=== PATIENT | female | born 1980 ===

== ENCOUNTER → 2020-07-12 | Outpatient (CLI) | payer OTHER ==
--- NOTE | 2020-07-12 14:23 | MM ---
Reason for exam: screening (asymptomatic). Baseline mammogram. History: Family history of breast cancer in maternal aunt at age 28. Taking hormonal contraceptives beginning at age 18. Physical Findings: Nurse did not find any significant physical abnormalities on exam. MG 3D Screening Mammo W/Cad Bilateral CC, MLO, and XCCL view(s) were taken. The breast tissue is heterogeneously dense. This may lower the sensitivity of mammography. There is no discrete abnormality. Benign right axillary lymph nodes. These results were verbally communicated with the patient and result sheet given to the patient on 07/12/20. ASSESSMENT: Benign, BI-RAD 2 RECOMMENDATION: Routine screening mammogram of both breasts in 1 year.
== END | disposition home or self-care (01) ==
LOC: RADMAMWWP 12:50
PROVIDERS: ATTEND Family Medicine
DX: Z12.31 Encounter for screening mammogram for malignant neoplasm of breast (principal)
CPT/HCPCS: 77063; 77067

== ENCOUNTER 2021-05-25 00:20 | Emergency (ER) | payer OTHER ==
[2021-05-25] MEDS ORDERED: ONDANSETRON 4 MG/2 ML VIAL IVP STA (01:16)
[2021-05-25] MEDS ORDERED: SODIUM CHLORIDE 0.9% 1,000 ML IV STA (01:16)
[2021-05-25] MEDS ORDERED: PANTOPRAZOLE 40 MG/10 ML VIAL IVP STA (01:17)
--- NOTE | 2021-05-25 01:17 | ED ---
Abdominal Pain HPI - General Chief Complaint: Recheck/Abnormal Lab/Rx Stated Complaint: Abd Pain Time Seen by Provider: 05/25/21 00:37 Source: patient, RN notes reviewed, old records reviewed Mode of arrival: ambulatory Limitations: no limitations - History of Present Illness Initial Comments: This is a 40-year-old female to the ER for evaluation. Patient presents today for evaluation regards to not feeling well with nausea and abdominal pain. Patient has history of needing a lot of wild mushrooms. Patient did for. While motions again tonight and after dinner the symptoms began. No fevers's some nausea without vomiting. No diarrhea. No prior history of similar complaints MD Complaint: abdominal pain -: days(s) Location: diffuse, epigastric, suprapubic Radiation: epigastric, suprapubic Migration to: epigastric, suprapubic Severity: mild Severity scale (1-10): 3 Quality: stabbing, aching Improves With: nothing Worsens With: nothing Associated Symptoms: nausea, vomiting Treatments Prior to Arrival: other (none) - Related Data Allergies Allergy/AdvReac Type Severity Reaction Status Date / Time No Known Allergies Allergy Verified 05/25/21 00:35 Review of Systems ROS Statement: Those systems with pertinent positive or pertinent negative responses have been documented in the HPI. ROS Other: All systems not noted in ROS Statement are negative. Past Medical History Past Medical History: No Reported History History of Any Multi-Drug Resistant Organisms: None Reported Past Surgical History: Section, Orthopedic Surgery Past Psychological History: No Psychological Hx Reported Smoking Status: Never smoker Past Alcohol Use History: Occasional Past Drug Use History: None Reported General Exam Limitations: no limitations General appearance: alert, in no apparent distress, anxious Head exam: Present: atraumatic, normocephalic, normal inspection Eye exam: Present: normal appearance, PERRL, EOMI. Absent: scleral icterus, conjunctival injection, periorbital swelling ENT exam: Present: normal exam, mucous membranes moist Neck exam: Present: normal inspection. Absent: tenderness, meningismus, lymphadenopathy Respiratory exam: Present: normal lung sounds bilaterally. Absent: respiratory distress, wheezes, rales, rhonchi, stridor Cardiovascular Exam: Present: regular rate, normal rhythm, normal heart sounds. Absent: systolic murmur, diastolic murmur, rubs, gallop, clicks GI/Abdominal exam: Present: soft, normal bowel sounds. Absent: distended, tenderness, guarding, rebound, rigid Extremities exam: Present: normal inspection, full ROM, normal capillary refill. Absent: tenderness, pedal edema, joint swelling, calf tenderness Back exam: Present: normal inspection Neurological exam: Present: alert, oriented X3, CN II-XII intact Psychiatric exam: Present: normal affect, normal mood Skin exam: Present: warm, dry, intact, normal color. Absent: rash Course Vital Signs 05/25/21 05/25/21 05/25/21 00:30 01:53 03:00 Temperature 98.6 F 98.1 F Pulse Rate 108 H 79 83 Respiratory 20 16 16 Rate Blood Pressure 122/80 118/74 121/78 O2 Sat by Pulse 99 99 99 Oximetry 05/25/21 04:02 Temperature 98.3 F Pulse Rate 76 Respiratory 16 Rate Blood Pressure 119/79 O2 Sat by Pulse 99 Oximetry - Reevaluation(s) Reevaluation #1: Medical record is reviewed Patient symptoms are significantly improved Patient family informed results questions answered Medical Decision Making - Medical Decision Making 40 female to the emergency department for evaluation of abdominal pain with nausea concern for amount of consumption overall mushrooms. His lab values are normal here in the ER she feels improved and can be discharged home - Lab Data Result diagrams: 05/25/21 01:34 05/25/21 01:34 Lab Results 05/25/21 05/25/21 05/25/21 Range/Units 01:34 01:34 01:34 WBC 12.4 H (3.8-10.6) k/uL RBC 4.79 (3.80-5.40) m/uL Hgb 15.0 (11.4-16.0) gm/dL Hct 44.8 (34.0-46.0) % MCV 93.4 (80.0-100.0) fL MCH 31.3 (25.0-35.0) pg MCHC 33.5 (31.0-37.0) g/dL RDW 12.9 (11.5-15.5) % Plt Count 321 (150-450) k/uL MPV 8.8 Neutrophils % 75 % Lymphocytes % 18 % Monocytes % 4 % Eosinophils % 1 % Basophils % 0 % Neutrophils # 9.3 H (1.3-7.7) k/uL Lymphocytes # 2.2 (1.0-4.8) k/uL Monocytes # 0.5 (0-1.0) k/uL Eosinophils # 0.2 (0-0.7) k/uL Basophils # 0.1 (0-0.2) k/uL PT 10.2 (9.0-12.0) sec INR 0.9 (<1.2) APTT 22.7 (22.0-30.0) sec Sodium 137 (137-145) mmol/L Potassium 4.0 (3.5-5.1) mmol/L Chloride 108 H (98-107) mmol/L Carbon Dioxide 22 (22-30) mmol/L Anion Gap 7 mmol/L BUN 12 (7-17) mg/dL Creatinine 0.57 (0.52-1.04) mg/dL Est GFR (CKD-EPI)AfAm >90 (>60 ml/min/1.73 sqM) Est GFR (CKD-EPI)NonAf >90 (>60 ml/min/1.73 sqM) Glucose 98 (74-99) mg/dL Plasma Lactic Acid [place] (0.7-2.0) mmol/L Calcium 9.0 (8.4-10.2) mg/dL Phosphorus 3.2 (2.5-4.5) mg/dL Magnesium 2.3 (1.6-2.3) mg/dL Total Bilirubin 0.8 (0.2-1.3) mg/dL AST 20 (14-36) U/L ALT 16 (4-34) U/L Alkaline Phosphatase 53 (38-126) U/L Troponin I (0.000-0.034) ng/mL Total Protein 7.1 (6.3-8.2) g/dL Albumin 4.0 (3.5-5.0) g/dL Lipase 82 (23-300) U/L 05/25/21 05/25/21 Range/Units 01:34 01:34 WBC (3.8-10.6) k/uL RBC (3.80-5.40) m/uL Hgb (11.4-16.0) gm/dL Hct (34.0-46.0) % MCV (80.0-100.0) fL MCH (25.0-35.0) pg MCHC (31.0-37.0) g/dL RDW (11.5-15.5) % Plt Count (150-450) k/uL MPV Neutrophils % % Lymphocytes % % Monocytes % % Eosinophils % % Basophils % % Neutrophils # (1.3-7.7) k/uL Lymphocytes # (1.0-4.8) k/uL Monocytes # (0-1.0) k/uL Eosinophils # (0-0.7) k/uL Basophils # (0-0.2) k/uL PT (9.0-12.0) sec INR (<1.2) APTT (22.0-30.0) sec Sodium (137-145) mmol/L Potassium (3.5-5.1) mmol/L Chloride (98-107) mmol/L Carbon Dioxide (22-30) mmol/L Anion Gap mmol/L BUN (7-17) mg/dL Creatinine (0.52-1.04) mg/dL Est GFR (CKD-EPI)AfAm (>60 ml/min/1.73 sqM) Est GFR (CKD-EPI)NonAf (>60 ml/min/1.73 sqM) Glucose (74-99) mg/dL Plasma Lactic Acid [place] 0.8 (0.7-2.0) mmol/L Calcium (8.4-10.2) mg/dL Phosphorus (2.5-4.5) mg/dL Magnesium (1.6-2.3) mg/dL Total Bilirubin (0.2-1.3) mg/dL AST (14-36) U/L ALT (4-34) U/L Alkaline Phosphatase (38-126) U/L Troponin I <0.012 (0.000-0.034) ng/mL Total Protein (6.3-8.2) g/dL Albumin (3.5-5.0) g/dL Lipase (23-300) U/L Disposition Clinical Impression: Abdominal pain Disposition: HOME SELF-CARE Condition: Good Instructions (If sedation given, give patient instructions): Abdominal Pain (ED) Is patient prescribed a controlled substance at d/c from ED?: No Referrals: Jose M Correia MD [Primary Care Provider] - 1-2 days
[2021-05-25 01:55] VITALS: RESP 16
[2021-05-25 01:57] LABS: Basophils # (A) 0.1 k/uL (0-0.2); Basophils % (A) 0 %; Eosinophils # (A) 0.2 k/uL (0-0.7); Eosinophils % (A) 1 %; HCT 44.8 % (34.0-46.0); Lymphocytes # (A) 2.2 k/uL (1.0-4.8); Lymphocytes % (A) 18 %; MCH 31.3 pg (25.0-35.0); MCHC 33.5 g/dL (31.0-37.0); MCV 93.4 fL (80.0-100.0); Mean Platelet Volume 8.8; Monocytes # (A) 0.5 k/uL (0-1.0); Monocytes % (A) 4 %; Neutrophils # (A) 9.3 k/uL (1.3-7.7); Neutrophils % (A) 75 %; Platelet Count 321 k/uL (150-450); RBC 4.79 m/uL (3.80-5.40); RDW 12.9 % (11.5-15.5); WBC 12.4 k/uL (3.8-10.6)
[2021-05-25 02:12] LABS: INR 0.9 (<1.2); Partial Thromboplastin Time 22.7 sec (22.0-30.0); Prothrombin Time 10.2 sec (9.0-12.0)
[2021-05-25 02:21] LABS: ALT 16 U/L (4-34); AST 20 U/L (14-36); Alkaline Phosphatase 53 U/L (38-126); Glucose 98 mg/dL (74-99); Lipase 82 U/L (23-300); Magnesium 2.3 mg/dL (1.6-2.3); Phosphorus 3.2 mg/dL (2.5-4.5); Sodium 137 mmol/L (137-145); Total Bilirubin 0.8 mg/dL (0.2-1.3)
[2021-05-25 02:56] LABS: Anion Gap 7 mmol/L; Carbon Dioxide 22 mmol/L (22-30); Chloride 108 mmol/L (98-107)
[2021-05-25 02:57] LABS: African American GFR (CKD) >90 (>60 ml/min/1.73 sqM); Blood Urea Nitrogen 12 mg/dL (7-17); Non-African American GFR(CKD) >90 (>60 ml/min/1.73 sqM); Total Protein 7.1 g/dL (6.3-8.2)
[2021-05-25 04:03] VITALS: BP 119/79; PULSE 76; TEMP 98.3
== END 2021-05-25 04:02 | disposition home or self-care (01) ==
LOC: EC 00:20
DX: R10.84 Generalized abdominal pain (principal)
CPT/HCPCS: 99284; 96374; 96375; 96361; 80053; 83605; 83690; 83735; 84100; 84484; 85025; 85610; 85730; J2405; C9113

== ENCOUNTER 2021-09-30 10:53 | Day surgery (SDC) | payer OTHER ==
[2021-09-27 18:18] VITALS: BMI 29.9
[~2021-09-30 10:53] MED LIST: LACTATED RINGERS 1,000 ML IV SCH
[2021-09-30 11:22] VITALS: RESP 16; TEMP 98
[2021-09-30] MEDS ORDERED: LIDOCAINE 1% INJ 10MG/ML (20 ML MDV) ONE (11:27)
[2021-09-30] MEDS ORDERED: PROPOFOL 10 MG/ML 20 ML VIAL IV ONE (11:27)
--- NOTE | 2021-09-30 11:40 | P.PCN ---
Date of Procedure: 09/30/21 Procedure(s) Performed: BRIEF HISTORY: Patient is a 41-year-old, pleasant, white female scheduled for an upper endoscopy as a part of evaluation of epigastric pain associated with nausea vomiting for the last 6 months duration. Has excessive burping but denies any heartburn. She was initiated with Prilosec with no help. She also has intermittent diarrhea.. PROCEDURE PERFORMED: Esophagogastroduodenoscopy with biopsy. PREOPERATIVE DIAGNOSIS: Epigastric pain/nausea vomiting on and off since April 2021. IV sedation per anesthesia. PROCEDURE: After informed consent was obtained, the patient was brought into the endoscopy unit. IV sedation was administered by Anesthesia under continuous monitoring. Initially the Olympus GIF-140 video endoscope was inserted into the mouth. Esophagus intubated without any difficulty. It was gradually advanced into the stomach and duodenum and carefully examined. The bulb and the second part of the duodenum appeared normal. His were done from the duodenum to rule out celiac disease. The scope at this time was withdrawn to the stomach, adequately insufflated with air, and upon careful examination, mucosa of the antrum, and mild gastritis and biopsies were done from this area. The body, cardia and the fundus appeared normal. The scope was then withdrawn into the esophagus. Small hiatal hernia seen. The GE junction was located at 35 cm from the incisors. The esophagus appeared normal. There were no erosions or ulcerations seen and biopsies were done from the distal esophagus and the patient tolerated the procedure well. IMPRESSION: 1. Mild antral gastritis. 2. Small hiatal hernia but no evidence of esophagitis. RECOMMENDATIONS: The findings of this examination were discussed with the patient as well as her family. She was advised to follow with the biopsy results. Recommended to start [id number] Pepcid as needed for her symptoms and follow antireflux measures
[2021-09-30 11:56] VITALS: BP 125/77; PULSE 79
== END 2021-09-30 12:16 | disposition home or self-care (01) ==
LOC: ORWHC2ENDO 10:53
PROVIDERS: ATTEND Internal Medicine Gastroenterology
DX: K29.70 Gastritis, unspecified, without bleeding (principal); K44.9 Diaphragmatic hernia without obstruction or gangrene
CPT/HCPCS: 43239; 81025; 88305; J2001; J2704

== ENCOUNTER → 2023-03-12 | Outpatient (CLI) | payer OTHER ==
--- NOTE | 2023-03-12 16:31 | US ---
EXAMINATION TYPE: US transvaginal DATE OF EXAM: 03/12/2023 COMPARISON: NONE CLINICAL INDICATION: Female, 42 years old with history of R10.31 RT LOWER QUADRANT PAIN; pelvic pain and h/o multiple IUD's TECHNIQUE: TV. Transvaginal sonographic Date of LMP: no cycles with IUD EXAM MEASUREMENTS: Uterus: 7.3 x 7.8 x 4.8 cm Endometrial Stripe: 0.6 cm Right Ovary: 3.3 x 2.1 x 2.5 cm Left Ovary: 3.1 x 2.1 x 2.0 cm 1. Uterus: Retroverted multiple fibroids, largest to the left = 3.6 x 3.8cm 2. Endometrium: IUD seen, wnl 3. Right Ovary: simple appearing cyst = 2.5 x 1.7 x 2.2cm 4. Left Ovary: small follicle seen, wnl 5. Bilateral Adnexa: wnl 6. Posterior cul-de-sac: wnl IMPRESSION: 1. No evidence for acute process. 2. Fibroid changes. 3. IUD within the endometrium. 4. Right ovarian dominant follicle.
== END | disposition home or self-care (01) ==
LOC: RADUSWWP 14:56
PROVIDERS: ATTEND Family Medicine
DX: D25.9 Leiomyoma of uterus, unspecified (principal); N83.01 Follicular cyst of right ovary; Z97.5 Presence of (intrauterine) contraceptive device
CPT/HCPCS: 76830